=== PATIENT | female | born 1990 | race Caucasian/White ===

== ENCOUNTER 2017-01-27 12:36 | Emergency (ER) | payer OTHER ==
[~2017-01-27] VITALS: Wt 66.5 kg
--- NOTE | 2017-01-27 13:53 | RADRPT ---
PROCEDURE: Left breast ultrasound. CLINICAL INDICATION: Left breast pain. TECHNIQUE: High-resolution sonography of the left breast was performed in the axial and sagittal p lanes. COMPARISON: No prior study is available for comparison. FINDINGS: There is no cystic or solid mass. Normal breast parenchyma is present. IMPRESSION: 1. Normal left breast ultrasound. 2. Any further management regarding any breast symptoms should be based upon clinical grounds. RPTAT: QQ .Chico Martino MD, MD Date Time Electronically viewed and signed by .Chico Martino MD, MD on 01/27/2017 13:52 .R/
--- NOTE | 2017-01-27 14:23 | ERD ---
ER Documentation Chief Complaint Date/Time DATE: 01/27/17 TIME: 14:17 Chief Complaint LEFT BREAST PAIN, ONSET 3 WEEKS AGO, CLEAR DISCHARGE HPI 26-year-old female presents to the emergency department complaining of mild to moderate left breast pain that started 3-4 weeks prior to being seen. Patient states that one time she did press on and there was a clear discharge. She denies any fevers, breast-feeding, discharge of this time. She states that she is already followed up with her primary care physician a couple weeks prior to being seen and they told her that it is nothing ROS All systems reviewed and are negative except as per history of present illness. PMhx/Soc Medical and Surgical Hx: pt denies Medical Hx, pt denies Surgical Hx History of Surgery: No Anesthesia Reaction: No Hx Neurological Disorder: No Hx Respiratory Disorders: No Hx Cardiac Disorders: No Hx Psychiatric Problems: No Hx Miscellaneous Medical Probl: No Hx Alcohol Use: Yes (ooc) Hx Substance Use: No Smoking Status: Never smoker Physical Exam Vitals Vital Signs Date Time Temp Pulse Resp B/P Pulse Ox O2 Delivery O2 Flow Rate FiO2 01/27/17 12:43 98.2 98 17 134/64 98 Physical Exam Const: [] Head: Atraumatic Eyes: Normal Conjunctiva ENT: Normal External Ears, Nose and Mouth. Neck: Full range of motion..~ No meningismus. Resp: Clear to auscultation bilaterally Cardio: Regular rate and rhythm, no murmurs Abd: Soft, non tender, non distended. Normal bowel sounds Skin: No petechiae or rashes BREAST: NO MASSES FELT, NO DC Back: No midline or flank tenderness Ext: No cyanosis, or edema Neur: Awake and alert Psych: Normal Mood and Affect Procedures/MDM 26-year-old female presents to the emergency department complaining of mild to moderate left breast pain that started 3-4 weeks prior to being seen. Patient states that one time she did press on and there was a clear discharge.She states that she is already followed up with her primary care physician a couple weeks prior to being seen and they told her that it is nothing. On examination patient did not have any masses or lymphadenopathy felt. There was no evidence of discharge. An ultrasound was done in the ED did not show any evidence of any lesions or fluid collection. I discussed the patient to continue to follow- up with her primary care physician. Prescription for ibuprofen was provided. She understands and agrees with this plan Breast ultrasound: 1. Normal left breast ultrasound. 2. Any further management regarding any breast symptoms should be based upon clinical grounds. Departure Diagnosis: Primary Impression: Breast pain Condition: Stable Patient Instructions: Breast Self-Exam (BSE) Additional Instructions: FOLLOW UP WITH YOUR PRIMARY CARE PHYSICIAN TOMORROW.Return to this facility if you are not improving as expected. Take all medicines as directed. Return to this facility if you are not improving as expected. GIULIA MAYFIELD PA-C Jan 27, 2017 14:23
== END 2017-01-27 14:17 | disposition home or self-care (01) ==
LOC: FTE 12:36
DX: N64.4 Mastodynia (principal)
CPT/HCPCS: 76642; Z7502